=== PATIENT | male | born 1985 | race Caucasian/White ===

== ENCOUNTER 2024-06-05 08:05 | Outpatient (CLI) | payer OTHER | END 2024-06-05 08:06 | disposition home or self-care (01) | LOC: CSHSLEEP 08:05 | PROVIDERS: ATTEND Internal Medicine | DX: G47.30 Sleep apnea, unspecified (principal); R53.83 Other fatigue; G25.89 Other specified extrapyramidal and movement disorders; F41.9 Anxiety disorder, unspecified; R06.83 Snoring; G47.10 Hypersomnia, unspecified | CPT/HCPCS: 95800 ==